=== PATIENT | male | born 1975 | race Caucasian/White ===

== ENCOUNTER 2025-02-05 14:07 | Outpatient (CLI) | payer OTHER, SELFPAY ==
--- NOTE | 2025-02-05 14:16 | MR_ITS ---
WS: [id number] MRI RIGHT KNEE NONCONTRAST TECHNIQUE: Axial PD, coronal PD fat sat, coronal PD, sagittal PD, and sagittal PD fat-sat images obtained. CLINICAL INFORMATION: INJURY OF RIGHT KNEE COMPARISON: None. FINDINGS: Distal quadriceps and patellar tendons are intact. Moderate suprapatellar effusion. Partial tear with intrasubstance signal abnormality and fluid along the ACL. Normal fibers are visualized. Ganglion cysts along the distal ACL insertion. Normal PCL. Complex tear involving the posterior horn medial meniscus extending to the articular surface. Blunting of the posterior horn. Lateral meniscus appears intact Lateral collateral ligament and popliteus appear intact. MCL appears intact. Moderate chondromalacia patella. Medial and lateral patellar retinacula appear intact. Normal popliteal fossa. Grade III chondromalacia lateral joint compartment advanced for a patient this age. Small amount of contusion in the posterior medial tibial plateau. MR/MR knee RT wo con* [id number] IMPRESSION: 1. Partial intrasubstance tear involving the ACL. PCL is intact. 2. Lobulated ganglion cysts along the distal ACL insertion. 3. Complex tear involving the posterior horn medial meniscus extending to the articular surface. 4. Moderate suprapatellar effusion. 5. Grade III chondromalacia patella worse involving the lateral patellar facet . 6. Grade III chondromalacia lateral joint compartment advanced for a patient t his age. 7. Small amount of contusion in the posterior medial tibial plateau. Outbridge grading: grade III: partial-thickness cartilage loss with focal ulcer ation
== END 2025-02-05 14:08 | disposition home or self-care (01) ==
LOC: RAD 14:10
PROVIDERS: PCP Family Medicine
DX: Z02.6 Encounter for examination for insurance purposes (principal); S83.511A Sprain of anterior cruciate ligament of right knee, initial encounter; S83.241A Other tear of medial meniscus, current injury, right knee, initial encounter; S80.01XA Contusion of right knee, initial encounter; X58.XXXA Exposure to other specified factors, initial encounter; M67.461 Ganglion, right knee; M25.461 Effusion, right knee; M94.261 Chondromalacia, right knee; R93.6 Abnormal findings on diagnostic imaging of limbs
CPT/HCPCS: 73721

== ENCOUNTER → 2025-02-24 09:00 | Outpatient (BNVA) | payer OTHER, SELFPAY | PROVIDERS: PCP Family Medicine; Visit Provider Student in an Organized Health Care Education/Training Program | DX: S83.241A Other tear of medial meniscus, current injury, right knee, initial encounter (principal); S83.511A Sprain of anterior cruciate ligament of right knee, initial encounter; M25.861 Other specified joint disorders, right knee; M94.261 Chondromalacia, right knee; X50.9XXA Other and unspecified overexertion or strenuous movements or postures, initial encounter | CPT/HCPCS: 73560; 73565 ==

== ENCOUNTER 2025-02-24 12:12 | Outpatient (CLI) | payer OTHER, SELFPAY | END 2025-02-24 12:13 | disposition home or self-care (01) | LOC: SPT 12:12 | PROVIDERS: PCP Family Medicine; Visit Provider Student in an Organized Health Care Education/Training Program | DX: Z46.89 Encounter for fitting and adjustment of other specified devices (principal); M25.561 Pain in right knee | CPT/HCPCS: 97760; L1812 ==

== ENCOUNTER 2025-03-11 07:31 | Day surgery (SDC) | payer OTHER, SELFPAY ==
[2025-03-11] VITALS (13 sets, daily range): BP systolic 104–186; BP diastolic 30–109; PULSE 77–93; RESP 16–23; TEMP 36.2–37; O2SAT 95–98; BMI 36.1
[2025-03-11 08:23] LABS: Glucose Point of Care 475 mg/dL (70-110)
[2025-03-11] MEDS: sodium chloride 0.9% 1,000 ML 30 ML IV (08:25)
--- NOTE | 2025-03-11 08:36 | ANES.PREANE2 ---
Documented by User: Trice Haines CRNA 03/11/25 08:38 Pre-Anesthetic Assessment Height/Weight: Height 1.96 m Weight 138.346 kg Temp Pulse Resp BP Pulse Ox O2 Del Method 98.0 F 91 18 186/109 96 Room Air 03/11/25 08:07 03/11/25 08:07 03/11/25 08:07 03/11/25 08:07 03/11/25 08:07 03/11/25 08:08 Operation Date: 03/11/25 10:30 Proposed Procedures p Knee Arthroscopy Knee Arthroscopy w/ partial Medial Menisectomy vs repair(Right) - Td [place], DO s Excision Of Ganglion Cyst(Right) - Td [place], DO s Chondroplasty(Right) - Td Gerard, DO Familial anesthetic complications: none Was Beta Leandra taken within 24 hours: N/A Was Clonidine taken within 24 hours: N/A Last intake: Intake Last Liquid Date 03/10/25 Last Liquid Time 22:00 Last Solid Date 03/10/25 Last Solid Time 19:00 Social Tobacco (2ppd smoked 1 cig this AM) and No alcohol Exam alert and oriented x 3 Airway Submandibular: within normal limits Cervical ROM: within normal limits Mallampati: Class II Dentition: false (a few bottom teeth, none are loose) Pulmonary Asthma, Chronic Obstructive Pulmonary Disease, Sleep Apnea (no CPAP) and Shortness of Breath CV/HEM Hypertension None reported Hepatic None reported GI Gastroesophageal Reflux Disease (controlled on omeprazole) and Peptic Ulcer Disease Metabolic Diabetes Mellitus (BS 475), Hyperlipidemia and Morbid Obesity Musc/skel Osteoarthritis/DJD Neuropsych Anxiety Anesthetic Plan ASA status: 3 Anesthesia: Anesthesia Evaluation and General Risk of > 500 ml blood loss (7ml/kg in children): No Medications/Allergies Home Medications ?Medication ?Instructions ?Recorded ?Confirmed ?Last Taken ?Type Right Hinged Knee Brace #1 ea 02/24/25 02/24/25 Unknown Rx albuterol (refill) 90 90 mcg inhalation BID 02/24/25 03/09/25 03/09/25 History mcg/actuation aerosol inhaler amitriptyline 50 mg tablet 100 mg PO DAILY 02/24/25 03/09/25 03/08/25 History insulin glargine 100 unit/mL 30 unit SUBCUT BID 02/24/25 03/09/25 Unknown History subcutaneous solution (Lantus U-100 Insulin) lisinopril 40 mg tablet 40 mg PO DAILY 02/24/25 03/09/25 Unknown History omeprazole 40 mg capsule,delayed 40 mg PO DAILY 02/24/25 03/09/25 03/09/25 History release trazodone 50 mg tablet 50 mg PO DAILY 02/24/25 03/09/25 Unknown History ibuprofen 800 mg tablet 800 mg PO BID PRN Pain 03/09/25 03/09/25 03/04/25 History aspirin 81 mg capsule 81 mg PO BID 14 days #28 caps 03/11/25 Unknown Rx hydrocodone 7.5 mg-acetaminophen 1 tab PO Q6H PRN pain #20 tabs 03/11/25 Unknown Rx 325 mg tablet ondansetron 4 mg disintegrating 4 mg PO Q8H PRN nausea and 03/11/25 Unknown Rx tablet vomiting 3 days #9 tabs Allergies Allergy/AdvReac Type Severity Reaction Status Date / Time metformin Allergy Intermediate ADR-Diarrhe Verified 02/24/25 09:08 a [facility] Anesthesia Social History Smoking and tobacco/nicotine status: current every day tobacco/nicotine user Data Anesthesia 03/11/25 08:50 Documented by User: Viral Holcomb DO 03/11/25 15:46 Pre-Anesthetic Assessment Anesthetic Plan Other: Blood can sugar 475 this morning. Patient states that he ate dessert last night and did not take any of his home insulin. Last A1c was 5.1. Tentative plan is to check bmp and give 5 units insulin and recheck and blood sugar came down to 281. Gave 3 more units and patient's blood sugar was 221 prior to going to the OR Medications/Allergies Home Medications ?Medication ?Instructions ?Recorded ?Confirmed ?Last Taken ?Type Right Hinged Knee Brace #1 ea 02/24/25 02/24/25 Unknown Rx albuterol (refill) 90 90 mcg inhalation BID 02/24/25 03/09/25 03/09/25 History mcg/actuation aerosol inhaler amitriptyline 50 mg tablet 100 mg PO DAILY 02/24/25 03/09/25 03/08/25 History insulin glargine 100 unit/mL 30 unit SUBCUT BID 02/24/25 03/09/25 Unknown History subcutaneous solution (Lantus U-100 Insulin) lisinopril 40 mg tablet 40 mg PO DAILY 02/24/25 03/09/25 Unknown History omeprazole 40 mg capsule,delayed 40 mg PO DAILY 02/24/25 03/09/25 03/09/25 History release trazodone 50 mg tablet 50 mg PO DAILY 02/24/25 03/09/25 Unknown History ibuprofen 800 mg tablet 800 mg PO BID PRN Pain 03/09/25 03/09/25 03/04/25 History aspirin 81 mg capsule 81 mg PO BID 14 days #28 caps 03/11/25 Unknown Rx hydrocodone 7.5 mg-acetaminophen 1 tab PO Q6H PRN pain #20 tabs 03/11/25 Unknown Rx 325 mg tablet ondansetron 4 mg disintegrating 4 mg PO Q8H PRN nausea and 03/11/25 Unknown Rx tablet vomiting 3 days #9 tabs Allergies Allergy/AdvReac Type Severity Reaction Status Date / Time metformin Allergy Intermediate ADR-Diarrhe Verified 02/24/25 09:08 a [facility] Anesthesia Social History Smoking and tobacco/nicotine status: current every day tobacco/nicotine user Data Anesthesia 03/11/25 08:50
[2025-03-11] MEDS: insulin regular-human 100 units/1 mL 5 UNIT IVP (08:41)
--- NOTE | 2025-03-11 09:03 | SUR.PREOP ---
08:30 anesthesia informed of PT's condition.
[2025-03-11 09:22] LABS: Anion Gap 16.8 (5-19); Blood Urea Nitrogen 26 mg/dL (6-20); Carbon Dioxide 23 mmol/L (22-29); Chloride 95 mmol/L (98-107); Creatinine Clr Calc Pharmacy 114.5909; Glomerular Filtration Rate 64.4 mL/min (90-130); Glucose 462 mg/dL (65-115); Osmolality Calculated 297 mOsm/kg (285-295); Potassium 3.8 mmol/L (3.5-5.1); Sodium 131 mmol/L (136-145)
[2025-03-11 09:37] LABS: Glucose Point of Care 281 mg/dL (70-110)
[2025-03-11] MEDS: insulin regular-human 100 units/1 mL 3 UNIT IVP (09:44)
[2025-03-11] MEDS: midazolam 1 mg/mL INJ 2 mL 2 MG IVP (09:59)
[2025-03-11] MEDS: ketorolac 30 mg/mL INJ IVP (10:02)
[2025-03-11] MEDS: acetaminophen 1,000 MG/100 ML PIGGYBACK 400 MG IV (10:05)
[2025-03-11 10:35] LABS: Glucose Point of Care 221 mg/dL (70-110)
--- NOTE | 2025-03-11 11:06 | W.PM.OPSUD ---
Surgery/Procedure H&P Update DATE OF PROCEDURE: March 11, 2025 DATE H&P PERFORMED: 02/24/25 H&P UPDATE INFORMATION: I have reviewed H&P completed within last 30 days, I have examined patient prior to procedure and No changes to prior documentation PREOP DIAGNOSIS: Right knee medial meniscus tear, chondromalacia, ganglion cysts PRIMARY INDICATION FOR PROCEDURE: Right knee medial meniscus tear, chondromalacia, ganglion cysts PLANNED PROCEDURE: Operation Date: 03/11/25 10:30 Proposed Procedures p Knee Arthroscopy Knee Arthroscopy w/ partial Medial Menisectomy vs repair(Right) - DO yolanda Johnson Excision Of Ganglion Cyst(Right) - DO yolanda Johnson Chondroplasty(Right) - Td Gee DO
[2025-03-11] MEDS: ceFAZolin 3,000 MG in sodium chloride 0.9% (plus) 100 ML 200 MG IV (11:12)
[2025-03-11] MEDS: lidocaine-epi 2% 20 mL INJ INJECTION ×2 (11:45→12:25)
--- NOTE | 2025-03-11 12:30 | P.BOP_ITS ---
Date of Procedure: 03/11/2025 Surgeon: Td Gee DO Double End Tenoner Setter(s): Hesham Gee PA-C Procedure(s) performed: Right knee diagnostic and surgical arthroscopy with partial medial meniscectomy Right knee diagnostic and surgical arthroscopy with partial lateral meniscectomy Right knee diagnostic and surgical arthroscopy with ganglion cysts excision Right knee diagnostic and surgical arthroscopy with extensive synovectomy (medial lateral patellofemoral compartment) Right knee diagnostic and surgical arthroscopy with medial and patellofemoral compartment chondroplasty Findings of the procedure(s): Underwent procedure as planned without issues or complications Estimated blood loss: 5 mL Specimen(s) removed: None Post-operative diagnosis: 1 right knee medial meniscus tear, lateral meniscus t ear, ganglion cysts anterior to ACL footprint, tricompartment chondromalacia, extensive synovitis
--- NOTE | 2025-03-11 12:33 | PM.OP ---
Operative Report Date of procedure: March 11, 2025 Surgeon: Td Gee DO Tank Builder Supervisor: Hesham Gee PA-C: PA was necessary for assistance in this case with leg positioning, assistance with arthroscopic instrumentation and assistance with leg positioning for partial meniscectomy procedure as well as chondroplasty, assistance in wound closure and dressing application. Procedure: Preoperative diagnosis: Right knee medial meniscus tear, chondromalacia, ganglion cysts Post-op diagnosis: right knee medial meniscus tear, lateral meniscus tear, ganglion cysts anterior to ACL footprint, tricompartment chondromalacia, extensive synovitis Procedure done: Right knee diagnostic and surgical arthroscopy with partial medial meniscectomy Right knee diagnostic and surgical arthroscopy with partial lateral meniscectomy Right knee diagnostic and surgical arthroscopy with ganglion cysts excision Right knee diagnostic and surgical arthroscopy with extensive synovectomy (medial lateral patellofemoral compartment) Right knee diagnostic and surgical arthroscopy with medial and patellofemoral compartment chondroplasty Surgeon: Td Gee DO Estimated blood loss: 5mL Tourniquet: No tourniquet was used IV fluids: See anesthesia record Complications: None Findings: See operative report narrative Condition: stable Disposition: same day Brief History: Patient is a 49-year-old male with right?knee?pain.? Patient has failed conservative treatment who has been worked up for right??knee?pain in the outpatient setting. MRI findings consistent with tear of the medial meniscus and ganglion cyst in knee. talked in the office about treatment options patient would like to proceed with a right knee diagnostic and surgical arthroscopy with partial medial meniscectomy versus repair, ganglion cyst excision and chondroplasty Patient understand the ins and outs of the procedure the risk benefits complication alternatives to treatment options.? Understanding risk of surgery they agree to proceed with surgical intervention.? Patient understand this may not provide patient with complete symptomatic relief of? pain as patient does have some underlying arthritis.? Understanding this and patient agree to proceed with surgical intervention all questions answered. Procedure: Patient seen and evaluated in the preoperative holding area.? Consent was reviewed and signed with patient.? Correct extremity was then marked.? Patient seen evaluated Anesthesia Department once cleared for surgery patient was taken back to the operative suite.? Patient was transported onto the OR table in supine position.? All bony prominences well-padded patient was appropriate secured to the bed.? Once appropriately anesthetized a nonsterile tourniquet was applied to the right thigh.? The right lower extremity was then prepped and draped in standard orthopedic fashion.? Final timeout performed.? Patient received appropriate preoperative antibiotics. Patient received local anesthetic of lidocaine with epinephrine into the joint as well as around the portal sites.? No tourniquet was inflated A standard 2 portal vertical incision diagnostic and surgical arthroscopy of the right?knee?was performed in standard fashion.? Small stab incision made in the inferolateral portal introduced trocar and arthroscope into the suprapatellar pouch.? Suprapatellar pouch was subsequently visualized and found to have significant synovitis but no loose bodies.? Patient had noticeable significant inflamed infrapatellar fat pad and thickening hypertrophic within the patellofemoral compartment.? ?The medial gutter was free of loose bodies I then introduced the arthroscope into the medial compartment.? Within the medial compartment I then established my inferior medial working portal utilizing spinal needle outside in technique.? Once established I then visualized our articular cartilage of the medial compartment with a valgus stress.? Patient was found to have grade 2-3 chondromalacia throughout the medial compartment.? Next I inspected the meniscus.? With an arthroscopic probe was utilized to visual? all aspects of the meniscus.? Meniscal root was found to be intact.? Meniscus was found to be torn at the body to posterior horn junction.? I then subsequently introduced a basket forceps as well as arthroscopic shaver to perform a partial medial meniscectomy to stable meniscal tissue and then utilized a thermal wand to anneal the edges.? Next, I then performed a synovectomy of the medial compartment.? Given patient's chondromalacia there was areas of unstable articular cartilage and I subsequently performed a chondroplasty with arthroscopic shaver and thermal wand.? This completed medial compartment work. Next a introduced the arthroscope to the intercondylar notch.? PCL and ACL were intact. The entirety of the ACL was intact. Anterior to its footprint was too noticeable ganglion cyst communicating into the infrapatellar fat pad at this point in time I utilized arthroscopic shaver to excise the ganglion cyst in front of the ACL. Care was made to keep the ACL intact throughout the procedure as well as not to injure the inner meniscal ligament. Cysts were removed and there entirety in addition to the infrapatellar fat pad. I then performed an extensive synovectomy with the arthroscopic shaver of the patellofemoral medial and lateral compartments as well as the intercondylar notch. Advance the?scope?into the retrocruciate space and no loose bodies were found. Next I introduced the arthroscope into the lateral compartment the lateral compartment was found to have grade 2 chondromalacia.? Lateral meniscus was found to have small flap/horizontal tear in the body of the lateral meniscus only in the very periphery of the white white zone. As result utilize arthroscopic shaver and basket forceps to perform a partial lateral meniscectomy to stable meniscal tissue the root was intact.? Given the grade II chondromalacia there is no unstable cartilage pieces to perform chondroplasty.? This completed my work of the lateral compartment and then performed a synovectomy of the lateral compartment.? Next of the arthroscope was placed into the lateral gutter and this was free of loose bodies.? Finally I reintroduced the arthroscope into the patellofemoral compartment.? The patellofemoral was found to have grade 3 chondromalacia of the patellofemoral compartment. At this point in time we utilized arthroscopic shaver and thermal wand to perform a chondroplasty of the patellofemoral space to stable articular tissue. At this point I utilized arthroscopic shaver as well as thermal wand to perform extensive synovectomy of the patellofemoral compartment. This completed my work of the patellofemoral space.? I then switch my portal sites to the medial working portal.? Completed the rest of my synovectomy and the rest of my examination arthroscopy was normal. All fluid was suctioned from the joint.? ?All instruments were withdrawn.? Portal sites were closed with interrupted nylon suture.? portal sites were then covered with with Xeroform 4 x 4's ABD Curlex and Galindo wrap.? Patient was then subsequently awakened from anesthesia and taken to PACU in stable condition. Disposition: Patient taken to PACU in stable condition recovering well.? Will receive appropriate discharge structure as well as pain medication postoperatively as well as? DVT prophylaxis.we will have patient follow-up with us in the office in 2 weeks.? We will weightbearing as tolerated to the right lower extremity.? Patient understands and agrees with current plan.? All questions answered.
[2025-03-11 12:58] LABS: Glucose Point of Care 204 mg/dL (70-110)
--- NOTE | 2025-03-11 13:05 | PM.PACU ---
PACU note Narrative: Patient is a 49-year-old male just underwent a right knee diagnostic and surgical arthroscopy. Pt transferred to PACU in stable condition. Dressing is dry. pt is awake and alert. pt can wiggle toes and plantarflex and dorsiflex foot. pt able to perform straight leg raise, Femoral nerve intact. Distal pulses are palpable toes are warm and well-perfused. Cap refill is normal and under 2 seconds. Sensation to foot is intact. Pain is controlled. Exam: awake Disposition: discharged
--- NOTE | 2025-03-11 15:45 | ANE.PACU2 ---
Inpatient post-anesthesia follow up: Airway intact: Yes Vital signs: Temperature 97.7 F Pulse Rate 86 Respiratory Rate 16 Blood Pressure 152/91 Pulse Oximetry 97 Oxygen Delivery Me thod Room Air Oxygen Flow Rate 2 Fraction of Inspir ed Oxygen Hydration adequate: Yes Nausea and vomiting: No Pain level: 1 Mental status: Baseline
== END 2025-03-11 14:30 | disposition home or self-care (01) ==
PROVIDERS: Student in an Organized Health Care Education/Training Program; PCP Student in an Organized Health Care Education/Training Program; Visit Provider Student in an Organized Health Care Education/Training Program
PROC: (CPT 29870; principal; 2025-03-11 10:30)
PROC: (CPT 29876; 2025-03-11 10:30)
DX: S83.241A Other tear of medial meniscus, current injury, right knee, initial encounter (principal); S83.281A Other tear of lateral meniscus, current injury, right knee, initial encounter; X58.XXXA Exposure to other specified factors, initial encounter; M67.461 Ganglion, right knee; M94.261 Chondromalacia, right knee; J44.9 Chronic obstructive pulmonary disease, unspecified; G47.30 Sleep apnea, unspecified; I10 Essential (primary) hypertension; K21.9 Gastro-esophageal reflux disease without esophagitis; K27.9 Peptic ulcer, site unspecified, unspecified as acute or chronic, without hemorrhage or perforation; E78.5 Hyperlipidemia, unspecified; E11.9 Type 2 diabetes mellitus without complications; E66.01 Morbid (severe) obesity due to excess calories; Z68.36 Body mass index [BMI] 36.0-36.9, adult; F41.9 Anxiety disorder, unspecified; Z79.4 Long term (current) use of insulin; Z79.82 Long term (current) use of aspirin; F17.200 Nicotine dependence, unspecified, uncomplicated
CPT/HCPCS: 29876; 29880; 27347; 36415; 36416; 80048; 82962; J0131; J0330; J0690; J1815; J1885; J2250; J2371; J2405; J2704; J3010; J7030; J9999

== ENCOUNTER → 2025-06-08 15:27 | Outpatient (BNVA) | payer OTHER, SELFPAY | PROVIDERS: PCP Student in an Organized Health Care Education/Training Program; Visit Provider Student in an Organized Health Care Education/Training Program | DX: M94.261 Chondromalacia, right knee (principal); Z98.890 Other specified postprocedural states; M17.11 Unilateral primary osteoarthritis, right knee | CPT/HCPCS: 73560; 73565 ==